=== PATIENT | female | born 1965 | race American Indian/Alaskan Native ===

== ENCOUNTER 2017-03-22 14:14 | Outpatient (CLI) | payer OTHER ==
--- NOTE | 2017-03-22 14:45 | XRay Report ---
XRAY LEFT KNEE 4 VIEWS: 03/22/17 14:14:00 CLINICAL: Knee pain. FINDINGS: Mild osteopenia. No fracture or dislocation. Mild narrowing of the medial joint space with small osteophytes. Normal lateral joint space. Mild patellofemoral joint osteoarthritis at small inferior osteophyte. A quadriceps insertion enthesophyte. No joint effusion. Normal soft tissues. IMPRESSION: Mild osteoarthritis and quadriceps enthesopathy.
== END 2017-03-22 14:15 | disposition home or self-care (01) ==
LOC: SPVIMAG 14:14
PROVIDERS: ATTEND Orthopaedic Surgery
DX: M17.12 Unilateral primary osteoarthritis, left knee (principal); M85.862 Other specified disorders of bone density and structure, left lower leg; M77.8 Other enthesopathies, not elsewhere classified